=== PATIENT | male | born 1980 | race Caucasian/White ===

== ENCOUNTER 2019-02-23 11:16 | Emergency (ER) | payer SELFPAY ==
[2019-02-23] MEDS ORDERED: IBUPROFEN 600 MG TABLET PO ONE (11:31)
--- NOTE | 2019-02-23 11:39 | Emergency Department Record ---
History of Present Illness - General Chief Complaint: Back Pain/Injury Stated Complaint: BACK AND CHEST PAIN Time Seen by Provider: 02/23/19 11:23 Source: Patient Mode of Arrival: Ambulatory Limitations: No limitations - History of Present Illness Initial Comments: The patient is here due to a one week hx of low back pain. The pain is mainly on the R. It is a sharp aching pain that is nonradiating and much worse with any bending, twisting, or sitting. There is no pain that radiates down the legs , no leg weakness, numbness or any bowel or bladder issues. He denies any trauma or fall and is not sure why it started. 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 The patient also has had L chest "tightness" for many months and it seems to be worse over the last 2 months. It seems to be worse with reaching up with his L arm. He has no SOB, AKIRA, sweating, or nausea with it and he seems to not notice it when he exerts himself. The patient states he seems to notice it more when he relaxes at home. He mainly came to the [facility] today due to the back pain and needing a work note but when he told them of the chest pain he was sent to the ER. The patient's only cardiac risk factor is tobacco use. MD Complaint: Back pain Onset/Timin -: Week(s) Similar Symptoms Previously: No Place: Home Radiation: None Severity: Mild Severity scale (1-10): 3 Quality: Aching Consistency: Constant Improves With: None Worsens With: None Context: Unknown Associated Symptoms: Chest pain - Related Data Previous Rx's Medication Instructions Recorded Cyclobenzaprine HCl [Flexeril] 10 mg PO TID PRN #20 tablet 02/23/19 Ibuprofen [Motrin] 800 mg PO TID PRN #20 tab 02/23/19 Allergies Allergy/AdvReac Type Severity Reaction Status Date / Time No Known Drug Allergies Allergy Unverified 07/14/18 17:11 Travel Screening - Travel/Exposure Within Last 30 Days Have you traveled within the last 30 days?: No Review of Systems Constitutional: Denies: Chills, Fever Eyes: Denies: Eye discharge ENT: Denies: Congestion Respiratory: Denies: Cough, Dyspnea Cardiovascular: Denies: Arrhythmia Endocrine: Denies: Fatigue Gastrointestinal: Denies: Abdominal pain Genitourinary: Denies: Dysuria Musculoskeletal: Reports: Back pain. Denies: Arthralgia Skin: Denies: Bruising Past Medical History - SOCIAL HISTORY Smoking Status: Current every day smoker Alcohol Use: None Drug Use: None - RESPIRATORY Hx Respiratory Disorders: No - CARDIOVASCULAR Hx Cardio Disorders: No - NEURO Hx Neuro Disorders: No - GI Hx GI Disorders: No - Hx Genitourinary Disorders: No - ENDOCRINE Hx Endocrine Disorders: No - MUSCULOSKELETAL Hx Musculoskeletal Disorders: No - PSYCH Hx Psych Problems: No - HEMATOLOGY/ONCOLOGY Hx Hematology/Oncology Disorders: No Family Medical History Any Significant Family History?: No Physical Exam - General General Appearance: Alert, Oriented x3, Cooperative, No acute distress - Head Head exam: Atraumatic, Normocephalic, Normal inspection - Eye Eye exam: Normal appearance, PERRL - ENT Throat exam: Normal inspection. negative: Tonsillar erythema, Tonsillar exudate - Neck Neck exam: Normal inspection, Full ROM. negative: Tenderness - Respiratory Respiratory exam: Normal lung sounds bilaterally. negative: Respiratory distress - Cardiovascular Cardiovascular Exam: Regular rate, Normal rhythm, Normal heart sounds - GI/Abdominal GI/Abdominal exam: Soft, Normal bowel sounds. negative: Tenderness - Extremities Extremities exam: Normal inspection, Full ROM, Normal capillary refill. negative: Tenderness - Back Back exam: Reports: Normal inspection, Full ROM, Other (Neg SLR bilaterally.). Denies: CVA tenderness (R), CVA tenderness (L), Muscle spasm, Paraspinal tenderness, Rash noted, Tenderness, Vertebral tenderness - Neurological Neurological exam: Alert, Normal gait, Oriented X3. negative: Abnormal gait, Altered, Motor sensory deficit - Psychiatric Psychiatric exam: negative: Anxious Course Vital Signs 02/23/19 11:19 Temperature 97.5 F L Pulse Rate 63 Respiratory 20 Rate Blood Pressure 135/94 Pulse Ox 100 - Reevaluation(s) Reevaluation #1: The patient is doing well at this time. I did explain to him that his workup is all WNL's. He is to take 2 days off work and see his PCP later this week for recheck. Her is to return to the ER for any worsening symptoms. 02/23/19 12:12 Medical Decision Making - Data Complexity MDM Data: Labs Ordered and/or Reviewed, X-Ray Ordered and/or Reviewed, EKG Ordered and/or Reviewed - Lab Data Result diagrams: 02/23/19 11:40 02/23/19 11:40 - EKG Data -: EKG Interpreted by Me EKG: No Acute Changes, Normal EKG - Radiology Data Radiology results: Report reviewed (CXR: Neg) Disposition Disposition: Discharge Clinical Impression: Low back strain Qualifiers: Encounter type: initial encounter Qualified Code(s): S39.012A - Strain of muscle, fascia and tendon of lower back, initial encounter Disposition: Home, Self-Care Condition: (2) Stable Instructions: Low Back Strain (ED) Additional Instructions: Please rest for 2 days and take the medicines as directed. Please see your family doctor later this week for recheck and return to the ER for any worsening symptoms. Prescriptions: Cyclobenzaprine HCl [Flexeril] 10 mg PO TID PRN #20 tablet PRN Reason: Pain Ibuprofen [Motrin] 800 mg PO TID PRN #20 tab PRN Reason: Pain Forms: Patient Portal Access Time of Disposition: 12:15 Quality - Quality Measures Quality Measures: N/A - Blood Pressure Screening View Details: Yes Does Patient Have Any of the Following: No Blood Pressure Classification: Hypertensive Reading Systolic Measurement: 135 Diastolic Measurement: 94 Screening for High Blood Pressure: < First Hypertensive BP, F/U Documented > [ G8950] First Hypertensive Follow-up Interventions: Referral to alternative/primary care provider.
[2019-02-23 11:43] LABS: BASO % 0.3 % (0-6); GRAN % 47.9 % (47-80); HEMOGLOBIN 17.1 gm/dl (14.0-18.0); LYMPH % 35.2 % (16-45); MEAN CELL VOLUME 97.9 fl (81-97); MEAN CORPUSCULAR HEMOGLOBIN 32.8 pg (27-33); MEAN CORPUSCULAR HGB CONC 33.5 g/dl (32-36); MEAN PLATELET VOLUME 9.6 fl (7.4-10.4); MONO % 11.6 % (0-9); PLATELET COUNT 223 K/uL (130-400); RED BLOOD COUNT 5.21 M/uL (4.40-5.70); RED CELL DISTRIBUTION WIDTH 13.7 % (11.5-14.5); WHITE BLOOD COUNT W/O DIFF 7.5 K/uL (4.2-12.2)
[2019-02-23 11:53] LABS: BLOOD UREA NITROGEN 14 mg/dL (6-20); CREATININE 0.9 mg/dL (0.7-1.2); EST GLOMERULAR FILTRATION RATE > 60 mL/min
[2019-02-23 11:54] LABS: TOTAL PROTEIN 6.9 g/dL (6.6-8.7)
[2019-02-23 11:56] LABS: GLUCOSE,RANDOM 93 mg/dL (74-109)
[2019-02-23 11:58] LABS: ALT/SGPT 20 U/L (<41)
[2019-02-23 11:59] LABS: ALB/GLOB RATIO 1.9 (1.1-1.8); ALBUMIN 4.5 g/dL (4.0-5.0); ALKALINE PHOSPHATASE 61 U/L (40-129); AST/SGOT 19 U/L (10.0-50.0)
== END 2019-02-23 12:45 | disposition home or self-care (01) ==
LOC: ER 11:16
DX: S39.012A Strain of muscle, fascia and tendon of lower back, initial encounter (principal); R07.89 Other chest pain; X50.9XXA Other and unspecified overexertion or strenuous movements or postures, initial encounter; Y92.009 Unspecified place in unspecified non-institutional (private) residence as the place of occurrence of the external cause; F17.210 Nicotine dependence, cigarettes, uncomplicated
CPT/HCPCS: 71046; 80053; 84484; 85025; 93005; 93010; 99284

== ENCOUNTER 2019-10-19 12:25 | Emergency (ER) | payer SELFPAY ==
--- NOTE | 2019-10-19 12:49 | Emergency Department Record ---
History of Present Illness - General Chief Complaint: Chest Pain Stated Complaint: WC PUSHED CHEST MUSLE Time Seen by Provider: 10/19/19 12:42 Source: Patient Mode of Arrival: Ambulatory Limitations: No limitations - History of Present Illness Initial Comments: The patient is here due to a 4-5 day hx of chest aching and burning. The symptoms seem to wax and wane and are nonradiating. He has had no SOB, AKIRA, sweating, or nausea with it. The symptoms do not worsen with exertion and seem to be worse with eating. The patient states he feels that sometimes when he eats food does get stuck. The patient did rest over the weekend and now discomfort is better now. The patient's only cardiac risk factor is tobacco use. The patient does work doing [employer] but denies any specific injury or trauma. MD Complaint: Chest pain Onset/Timin -: Days(s) Onset: During exertion Pain Location: Substernal, Epigastric Pain Radiation: None Severity: Mild Severity scale (1-10): 2 Quality: Dull, Tightness Consistency: Intermittent Improves With: Remaining still Worsens With: Exertion - Related Data Previous Rx's Medication Instructions Recorded Ibuprofen [Motrin] 800 mg PO TID PRN #20 tab 02/23/19 Allergies Allergy/AdvReac Type Severity Reaction Status Date / Time No Known Drug Allergies Allergy Unverified 07/14/18 17:11 Travel Screening - Travel/Exposure Within Last 30 Days Have you traveled within the last 30 days?: No - Travel/Exposure Within Last Year Have you traveled outside the [place] in the last year?: No - Additonal Travel Details Have you been exposed to anyone with a communicable illness?: No - Travel Symptoms Symptom Screening: None Review of Systems Constitutional: Denies: Chills, Fever Eyes: Denies: Eye discharge ENT: Denies: Congestion Respiratory: Denies: Cough, Dyspnea Cardiovascular: Denies: Arrhythmia, Dyspnea on exertion Past Medical History - SOCIAL HISTORY Smoking Status: Current every day smoker Drug Use: None - RESPIRATORY Hx Respiratory Disorders: No - CARDIOVASCULAR Hx Cardio Disorders: No - NEURO Hx Neuro Disorders: No - GI Hx GI Disorders: No - Hx Genitourinary Disorders: No - ENDOCRINE Hx Endocrine Disorders: No - MUSCULOSKELETAL Hx Musculoskeletal Disorders: No - PSYCH Hx Psych Problems: No - HEMATOLOGY/ONCOLOGY Hx Hematology/Oncology Disorders: No Family Medical History Any Significant Family History?: No Physical Exam - General General Appearance: Alert, Oriented x3, Cooperative, No acute distress - Head Head exam: Atraumatic, Normocephalic - Eye Eye exam: Normal appearance, PERRL - ENT Throat exam: Normal inspection. negative: Tonsillar erythema, Tonsillar exudate - Neck Neck exam: Normal inspection, Full ROM. negative: Tenderness - Respiratory Respiratory exam: Normal lung sounds bilaterally. negative: Chest wall tenderness, Rales, Respiratory distress, Rhonchi, Stridor, Wheezes - Cardiovascular Cardiovascular Exam: Regular rate, Normal rhythm, Normal heart sounds. negative: Diastolic murmur, Systolic murmur - GI/Abdominal GI/Abdominal exam: Soft, Normal bowel sounds. negative: Tenderness - Extremities Extremities exam: Normal inspection, Full ROM, Normal capillary refill. negative: Tenderness - Back Back exam: Reports: Normal inspection - Neurological Neurological exam: Alert, Normal gait, Oriented X3. negative: Abnormal gait, Al tered, Motor sensory deficit Course Vital Signs 10/19/19 12:34 Temperature 97.6 F Pulse Rate [ 74 Pulse Ox Probe] Respiratory 18 Rate Blood Pressure 127/80 [Left Arm] Pulse Ox 97 - Reevaluation(s) Reevaluation #1: The patient is doing very well at this time. He feels slightly better with the GI meds. I doubt strongly the patient has any serious cardiac or pulmonary cause for the pain. The pain has been there for days and is clearly not exertional. He has no SOB, AKIRA, sweating, or nausea with it. He also had a similar issue in January of this year and did have a normal workup in the ER but did not follow up with a family doctor. The patient is very low risk by HEART Score (with a score of 1) so I do feel it is safe discharging him for an outpatient workup. 10/19/19 13:49 Medical Decision Making - Data Complexity MDM Data: Labs Ordered and/or Reviewed, X-Ray Ordered and/or Reviewed, EKG Ordered and/or Reviewed - Lab Data Result diagrams: 10/19/19 12:58 10/19/19 12:58 - EKG Data -: EKG Interpreted by Me EKG: No Acute Changes, Unchanged From Previous - Radiology Data Radiology results: Report reviewed (CXR: Neg.) Disposition Disposition: Discharge Clinical Impression: Atypical chest pain Disposition: Home, Self-Care Condition: (2) Stable Instructions: Noncardiac Chest Pain (ED) Additional Instructions: Please rest when possible and use Tylenol or Motrin for pain. Please see a [facility] ndiaye doctor for recheck and further testing as an outpatient. Return to the ER for any worsening symptoms or any pain, breathing issues or weakness. Forms: Patient Portal Access Time of Disposition: 13:54 Quality - Quality Measures Quality Measures: N/A - Blood Pressure Screening View Details: Yes Does Patient Have Any of the Following: No Blood Pressure Classification: Pre-Hypertensive BP Reading Systolic Measurement: 127 Diastolic Measurement: 80 Screening for High Blood Pressure: < Pre-Hypertensive BP, F/U Documented > [G8950] Pre-Hypertensive Follow-up Interventions: Referral to alternative/primary care provider.
[2019-10-19] MEDS ORDERED: MAGNESIUM HYDROXIDE/AL HYDROX 30 ML, LIDOCAINE VISC 2% 15ML 15 ML PO ONE ×2 (12:54)
[2019-10-19 13:07] LABS: ABSOLUTE NEUTROPHIL COUNT 3.01; BASO % 0.5 % (0-6); EOS % 3.9 % (0-6); GRAN % 46.9 % (47-80); HEMATOCRIT 52.3 % (42.0-52.0); HEMOGLOBIN 17.6 gm/dl (14.0-18.0); LYMPH % 37.3 % (16-45); MEAN CELL VOLUME 98.5 fl (81-97); MEAN CORPUSCULAR HEMOGLOBIN 33.1 pg (27-33); MEAN CORPUSCULAR HGB CONC 33.7 g/dl (32-36); MEAN PLATELET VOLUME 9.5 fl (7.4-10.4); MONO % 11.4 % (0-9); PLATELET COUNT 218 K/uL (130-400); RED BLOOD COUNT 5.31 M/uL (4.40-5.70); RED CELL DISTRIBUTION WIDTH 13.7 % (11.5-14.5); WHITE BLOOD COUNT W/O DIFF 6.4 K/uL (4.2-12.2)
[2019-10-19 13:15] LABS: BLOOD UREA NITROGEN 21 mg/dL (6-20); CREATININE 0.9 mg/dL (0.7-1.2); EST GLOMERULAR FILTRATION RATE > 60 mL/min
[2019-10-19 13:16] LABS: TOTAL PROTEIN 7.3 g/dL (6.6-8.7)
[2019-10-19 13:18] LABS: GLUCOSE,RANDOM 108 mg/dL (74-109)
[2019-10-19 13:21] LABS: ALB/GLOB RATIO 1.9 (1.1-1.8); ALBUMIN 4.8 g/dL (4.0-5.0); ALKALINE PHOSPHATASE 68 U/L (40-129); ALT/SGPT 16 U/L (<41); AST/SGOT 17 U/L (10.0-50.0)
[2019-10-19] MEDS ORDERED: SUCRALFATE 1 G/10 ML UD PO ONE (13:38)
--- NOTE | 2019-10-19 13:52 | RADIOLOGY REPORT ---
EXAMINATION: Two View Chest Radiographs EXAM DATE: 10/19/2019 1:26 PM TECHNIQUE: Frontal and lateral views INDICATION: chest tightness COMPARISON: Two-view chest x-ray 02/23/2019 ENCOUNTER: Not applicable FINDINGS: The heart, mediastinum, and pulmonary vasculature are normal. No lung consolidation or pleural effu sions are present. IMPRESSION: Normal chest. Dictated by: Rip Mcdermott MD on 10/19/2019 1:48 PM. .
== END 2019-10-19 14:04 | disposition home or self-care (01) ==
LOC: ER 12:25
DX: R07.89 Other chest pain (principal); R10.13 Epigastric pain; F17.210 Nicotine dependence, cigarettes, uncomplicated
CPT/HCPCS: 71046; 80053; 84484; 85025; 93005; 93010; 99284